=== PATIENT | male | born 1955 | race Caucasian/White ===

== ENCOUNTER 2017-07-15 07:59 | Day surgery (SDC) | payer OTHER ==
[~2017-07-15 07:59] MED LIST: PREMYELOGRAM MEDICATION REVIEW 1 EACH MISC PO PRN
[2017-07-15 08:30] VITALS: TEMP 97.3
[2017-07-15] MEDS ORDERED: DIAZEPAM 5 MG TAB PO STA (08:40)
[2017-07-15] MEDS ORDERED: HYDROcodone/APAP 5-325MG 1 EACH TAB PO PRN (09:34)
--- NOTE | 2017-07-15 10:18 | CT ---
EXAMINATION TYPE: CT lumbar spine w con, [place] myelogram lumbosacral DATE OF EXAM: 07/15/2017 COMPARISON: NONE HISTORY: Radiculopathy CT DLP: 946 mGycm Automated exposure control for dose reduction was used. Informed consent was obtained and all the patient's questions were answered. Standard sterile techniq ue was utilized as well as appropriate local anesthesia with 1% lidocaine and bicarbonate. Under fluo roscopic guidance a spinal needle was introduced into the thecal sac and 10 cc of Omnipaque 240 was i njected intrathecally. Patient tolerated the procedure well and left the department in stable conditi on. Further imaging via CT. L1-L2: Normal disc space height. No disc herniation protrusion or central stenosis. No facet joint arthropathy. No evidence for foraminal encroachment. L2-L3: Mild disc space narrowing. Broad-based disc bulge. Mild effacement ventral thecal sac. No cata iation or central stenosis. Foramina are patent. L3-L4: Mild to moderate degenerative disc space narrowing. Moderate circumferential disc bulge greate st posteriorly with effacement of the ventral thecal sac. Bilateral lateral recess stenosis left grea ter than right. Small herniation difficult to exclude. Borderline to mild central stenosis. L4-L5: Laminectomy changes identified. Vacuum disc changes noted. Epidural soft tissue which may refl ect granulation tissue. Recurrent or residual disc not excluded. No evidence for central stenosis. Bi lateral facet joint arthropathy. Bilateral foraminal encroachment. Grade 1 retrolisthesis of 3 to 4 m m. L5-S1: Laminectomy changes identified. Vacuum disc changes noted. Epidural soft tissue which may refl ect granulation tissue. Recurrent or residual disc not excluded. No evidence for central stenosis. Bi lateral facet joint arthropathy. Bilateral foraminal encroachment. Grade 1 retrolisthesis of 3 to 4 m m. IMPRESSION: 1. Multilevel degenerative disc disease. 2. Broad-based disc bulge with possible herniation at L3-4. Bilateral lateral recess stenosis and bor derline to mild central stenosis as discussed. 3. Laminectomy changes at L4-5 and L5-S1 with probable granulation tissue. Recurrent or residual disc is difficult to exclude. See above.
[2017-07-15 10:28] VITALS: RESP 20
[2017-07-15 14:40] VITALS: PULSE 98
[2017-07-15 14:41] VITALS: BP 130/86
== END 2017-07-15 13:45 | disposition home or self-care (01) ==
LOC: RADPROMAIN 07:59
PROVIDERS: ATTEND Family Medicine
DX: M51.16 Intervertebral disc disorders with radiculopathy, lumbar region (principal); M48.061 Spinal stenosis, lumbar region without neurogenic claudication; I10 Essential (primary) hypertension; Z87.891 Personal history of nicotine dependence; Z79.82 Long term (current) use of aspirin; Z79.1 Long term (current) use of non-steroidal anti-inflammatories (NSAID); Z79.891 Long term (current) use of opiate analgesic; Z79.52 Long term (current) use of systemic steroids; Z79.899 Other long term (current) drug therapy
CPT/HCPCS: 62304; 72132; Q9966; 62284